=== PATIENT | male | born 2005 | race Caucasian/White ===

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

== ENCOUNTER 2025-01-19 16:42 | Emergency (ER) | payer BC, SELFPAY ==
[2025-01-19 16:44] VITALS: BP 168/81; PULSE 91; RESP 16; TEMP 36.9; O2SAT 100; BMI 19.3
--- NOTE | 2025-01-19 17:05 | EDS_ITS ---
HPI HPI - Psych History of Present Illness Chief Complaint: Mental Health [facility] Medical History (Updated 01/19/25 @ 18:29 by Nirmala Varela) Schizophrenia Home Medications ?Medication ?Instructions ?Recorded ?Last Taken ?Type NK 01/19/25 Unknown History Allergy/AdvReac Type Severity Reaction Status Date / Time No Known Allergies Allergy Verified 01/19/25 16:44 Social History Smoking Status: Never smoker alcohol intake: never substance use type: does not use EXAM Physical Exam Const Vital Signs: 01/19/25 16:44 01/19/25 21:00 Temperature 98.5 F Temperature Source Oral Pulse Rate 91 74 Respiratory Rate 16 19 H Blood Pressure 168/81 H 142/76 H Blood Pressure Mean 110 98 Pulse Ox 100 98 Oxygen Delivery Method Room Air Room Air MDM MDM MDM Narrative Medical decision making narrative: HISTORY OF PRESENT ILLNESS: Chief complaint: Auditory sedation 20-year-old male history of schizophrenia presents with my life is coming and done. Notes he is been noncompliant medications because he recently moved. Notes he is trying to get into a new doctor. The patient has difficult time explaining his symptoms. Per his father he has been off his medicines for months and had slow decline. Notes it came to ahead yesterday when he was at work in [place] and need to be flown emergently because he could not work secondary to intrusive thoughts vision auditory elucidation's. Patient denies suicidal homicidal ideation. Denies recent head trauma. Denies headaches. Denies any other physical complaints REVIEW OF SYSTEMS: Pertinent positives: Auditory hallucinations, visual hallucinations Pertinent negatives: Chest pain, abdominal pain PHYSICAL EXAM: Nursing triage notes reviewed, Vital signs reviewed Constitutional: please see mdm HENT: MMM Eyes: Pupils equal round and reactive to light, Extraocular muscles intact Neck: No stridor, no JVD, full neck ROM Lungs: Clear to auscultation, No wheezing or rales. No increased work of breathing, no conversational dyspnea, no accessory muscle use, no nasal flaring. No respiratory distress noted Heart: Regular rate and rhythm, No murmurs, No rubs and No gallops, 2+ distal pulses (radial, femoral, posterior tibial) in all extremities Abdomen: Soft, there is no tenderness, rigidity, rebound or guarding, no obvious peritoneal signs, no palpable pulsatile abdominal masses, no auscultated abdominal bruit : No CVAT Extremities: No edema Neuro: No new focal neurological deficits, cranial nerves II through XII intact, 5/5 strength in all present extremities. Intact sensation to light touch in all present extremities, 2+ reflexes bilateral patella tendons. Skin: No rash or lesions noted Psych: Patient was anxious, nervous, could not finish a coherent thought, did not have a goal-directed thought process, did not appear to responding to internal stimuli MEDICAL DECISION MAKING: Chief Complaint: please see HPI External records reviewed: Reviewed prior ED visits Factors affecting care: schizophrenia Social determinants of health: History of mental health disorder History obtained from others: Consults: Behavioral health MDM Narrative: Patient was initially hemodynamically stable, afebrile and nontoxic-appearing. Exam with signs of decompensated psychiatric illness. I considered the following differential diagnosis: ICH, decompensated psychosis, drug ingestion I obtained a broad lab and imaging workup to further determine if the patient was suffering from a life-threatening etiology. Initially treated the patient's hallucinations with oral Haldol. ALL IMAGES (IF OBTAINED) HAVE BEEN PERSONALLY REVIEWED AND INTERPRETED BY MYSELF. CT brain without ICH CBC with no leukocytosis, no anemia or thrombocytopenia BMP with hypokalemia, noted metabolic acidosis and signs of endorgan hypoperfusion likely secondary to dehydration no acute kidney injury Urine tox cream Serum alcohol Patient was medically cleared. Awaiting behavioral health evaluation and final disposition. Likely inpatient psychiatric facility given decompensated schizophrenia and psychosis During patient's ED visit he became more agitated requiring additional IM therapy in the form of Geodon and Benadryl. [facility] health noted the patient will be excepted to an outside psych facility ([facility]) pending EKG. EKG EKG with normal sinus rhythm rate of 72, right axis deviation, normal intervals, no STEMI The patient and/or family, caregivers express understanding. The patient and/or family, caregivers agrees with the plan. Shared decision making: I will have a discussion with the patient and or visitors regarding risk/benefits of further testing or admission. They will be made aware of of the risk/benefits inherent in this decision they will be given the opportunity to voice understanding. Total critical care time today provided was at least 0 minutes. This excludes s eparately billable procedures. Critical care time (if documented) is secondary to the patient having high probability of clinically significant/life threatening deterioration in the patient's condition which required my urgent intervention. Impression: 1. Auditory hallucinations 2. Visual hallucinations 3. Decompensated psychosis Dispo: Transferred to inpatient behavioral health This note was generated with [employer] dictation software. It may contain incorrect words, spelling, and punctuation that were not noted in review of the chart prior to signing. Lab Data Labs: Laboratory Results - last 24 hr 01/19/25 18:14 WBC 7.8 RBC 5.16 Hgb 14.8 Hct 42.6 MCV 82.6 MCH 28.7 MCHC 34.7 RDW Std Deviation 38.3 RDW Coeff of Teresa 12.6 Plt Count 242 MPV 9.2 Immature Gran % (Auto) 0.400 Neut % (Auto) 76.2 H Lymph % (Auto) 16.0 L Griggs % (Auto) 6.8 Eos % (Auto) 0.3 Baso % (Auto) 0.3 Absolute Neuts (auto) 5.9 Absolute Lymphs (auto) 1.25 Nucleated RBC % 0 Sodium 139 Potassium 3.2 L Chloride 103 Carbon Dioxide 18.6 L Anion Gap 17 H BUN 16 Creatinine 0.96 Estim Creat Clear Calc 111.67 Est GFR (MDRD) Non-Af 116 BUN/Creatinine Ratio 16.9 Glucose 94 Calcium 9.6 Urine Opiates Screen NEGATIVE U Buprenorphine Qual NEGATIVE Ur Oxycodone Screen NEGATIVE Urine Methadone Screen NEGATIVE Urine Fentanyl Screen NEGATIVE Ur Barbiturates Screen NEGATIVE Ur Phencyclidine Scrn NEGATIVE Ur Amphetamines Screen NEGATIVE U Benzodiazepines Scrn NEGATIVE Urine Cocaine Screen NEGATIVE U Cannabinoids Screen PRESUMPTIVE POSITIVE Ethyl Alcohol < 10.1 Radiography Diagnostic Testing: Clinical Impression(s) from Imaging Studies Brain CT 01/19/25 18:35 IMPRESSION: Normal head CT. Reading [id number] Discharge Plan Triage Chief Complaint: Mental Health ED Provider: Gil May Dx/Rx/DC Orders Prescriptions: No Action NK Primary Care Provider: Simeon Rivera Referrals: Simeon Rivera MD [Primary Care Provider] - Print Language: Lithuanian
--- NOTE | 2025-01-19 18:35 | CT_ITS ---
PROCEDURE: CT BRAIN/HEAD WITHOUT CONTRAST 01/19/2025 REASON FOR EXAM: ABNORMAL BEHAVIOR TECHNIQUE: Procedure Code: CTBR Modality: CT Procedure: BRAIN/HEAD WITHOUT CONTRAST Coronal and Sagittal reconstruction series were provided. One or more dose reduction techniques were used (e.g., Automated exposure control, adjustment of the mA and/or kV according to patient size, use of iterative reconstruction technique. RADIATION DOSE SUMMARY: CTDlvol: 44.99 mGy DLP: 849.54 mGycm COMPARISON: None. FINDINGS: No acute intracranial hemorrhage, extra-axial collection, mass effect or acute infarct. Ventricles and subarachnoid spaces are normal in size. Unremarkable orbits. Intact skull base and calvarium. Clear paranasal sinuses and mastoid air cells. CT/Brain/Head without Contrast IMPRESSION: Normal head CT. Reading [id number]
[2025-01-19 18:44] LABS: Hematocrit 42.6 % (40-54); Hemoglobin 14.8 g/dL (13.0-16.5); Immature Granulocytes Count 0.030 X10^3/uL (0.0-0.0); Mean Corp Hgb Conc 34.7 g/dL (32-36); Mean Corpuscular Volume 82.6 fL (80-94); Mean Platelet Vol. 9.2 fl (6.2-12.0); NRBC Flagged by Analyzer 0 % (0-5); Platelet Count 242 K/mm3 (150-450); RBC Distribution Width CV 12.6 % (11.6-14.6); RBC Distribution Width SD 38.3 fl (35.1-43.9); Red Blood Count 5.16 M/mm3 (4.6-6.2); White Blood Count 7.8 K/mm3 (4.4-11.0)
[2025-01-19 19:00] LABS: Anion Gap 17 (5-15); BUN 16 mg/dL (4-19); BUN/Creat Ratio 16.9 RATIO (10-20); Calcium,Total 9.6 mg/dL (7.6-11.0); Carbon Dioxide 18.6 mmol/L (21.0-32.0); Chloride 103 mmol/L (98-108); Estimated Creatinine Clearance 111.67 ml/min (50-250); Glucose 94 mg/dL (70-99); Potassium 3.2 mmol/L (3.3-5.1)
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
[2025-01-19 19:08] LABS: Alcohol, Blood (Medical)-Serum < 10.1 mg/dL (<=10.0)
[2025-01-19 19:13] LABS: Barbiturate Urine NEGATIVE (< 200 ng/mL); Benzodiazepine Urine NEGATIVE (< 200 ng/mL); PCP Urine NEGATIVE (< 25 ng/mL); THC Urine PRESUMPTIVE POSITIVE (< 50 ng/mL)
--- NOTE | 2025-01-19 20:00 | ED.RN ---
Pt hyperventilating, shaking, crying,and requesting something else for anxiety. Dr. May updated. Orders placed.
[2025-01-19] MEDS: Ziprasidone IM 20 MG/ML VIAL IM (20:02)
[2025-01-19] MEDS: DiphenhydrAMINE 50 MG/ML Syringe IM (20:02)
--- NOTE | 2025-01-19 20:26 | EKG12_ITS ---
Test Reason : MENTAL HEALTH Blood Pressure : */* mmHG Vent. Rate : 72 BPM Atrial Rate : 72 BPM P-R Int : 132 ms QRS Dur : 100 ms QT Int : 408 ms P-R-T Axes : 54 112 72 degrees QTcB Int : 446 ms Normal sinus rhythm with sinus arrhythmia Right axis deviation Possible Right ventricular hypertrophy Abnormal ECG Confirmed by Toney Joseph ([id number]), features editor RENATE RICHARDS ([id number]) on 01/21/2025 6:44:02 AM Referred By: Confirmed By: Toney Joseph
[2025-01-19 21:00] VITALS: BP 142/76; PULSE 74; RESP 19; O2SAT 98
--- NOTE | 2025-01-19 21:47 | ED.RN ---
dad updated on eta
--- NOTE | 2025-01-19 21:47 | CM.ED ---
Social Work Patient was referred and accepted at [facility]. Patient and patients dad updated on same. Patient will be going to [facility], admitting is [facility]. N2N [phone]. Requested pink slip and EKG faxed. No further needs identified at this time. Angela Castro, CLUTCH INSPECTOR, ROLLS MILL OPERATOR
[2025-01-19 23:13] VITALS: BP 155/80; PULSE 59; RESP 19; TEMP 36.6; O2SAT 98
== END 2025-01-19 23:15 ==
PROVIDERS: Emergency Provider Emergency Medicine; PCP Family Medicine; Visit Provider Emergency Medicine
DX: F20.9 Schizophrenia, unspecified (principal); E87.6 Hypokalemia; Z91.148 Patient's other noncompliance with medication regimen for other reason
CPT/HCPCS: 70450; 80048; 80307; 82077; 85025; 93005; 96372; 99284; J3486